=== PATIENT | female | born 1945 | race Caucasian/White ===

== ENCOUNTER → 2016-11-19 | Outpatient (REF) | payer MEDICARE, OTHER ==
[~2016-11-19] MED LIST: ATOR80TA59 PO; CALC600T57 PO; CENTCHW4 PO; COUM2.5T17 PO; PERC5TAB12 PO; WARF-23; ZOLO100T PO
[2016-11-19 13:34] LABS: MEAN CORPUSCULAR HEMOGLOBIN 31.8 pg (27.0-33.0); MEAN CORPUSCULAR HGB CONC 33.9 g/dl (32.0-36.5); MEAN CORPUSCULAR VOLUME 93.8 fl (80.0-96.0); RED CELL DISTRIBUTION WIDTH 12.9 % (11.5-14.5); WHITE BLOOD COUNT 10.6 K/mm3 (4.0-10.0)
[2016-11-19 13:49] LABS: ALBUMIN 4.2 GM/DL (3.2-5.2); ALBUMIN/GLOBULIN RATIO 1.56 (1.00-1.93); ALKALINE PHOSPHATASE 85 U/L (45-117); ALT/SGPT 27 U/L (12-78); ANION GAP 9 MEQ/L (8-16); AST/SGOT 17 U/L (15-37); BILIRUBIN,TOTAL 0.5 MG/DL (0.2-1.0); BLOOD UREA NITROGEN 17 MG/DL (7-18); CALCIUM LEVEL 9.5 MG/DL (8.8-10.2); CARBON DIOXIDE LEVEL 29 MEQ/L (21-32); CHLORIDE LEVEL 106 MEQ/L (98-107); CHOLESTEROL LEVEL 246 MG/DL (<200); CREATININE FOR GFR 0.64 MG/DL (0.55-1.02); GLOMERULAR FILTRATION RATE > 60.0 (>39); GLUCOSE, FASTING 98 MG/DL (83-110); SODIUM LEVEL 144 MEQ/L (136-145); TOTAL PROTEIN 6.9 GM/DL (6.4-8.2); TRIGLYCERIDES LEVEL 84 MG/DL (<150)
== END ==
LOC: M SFHCPLAZ 09:46
PROVIDERS: ATTEND Internal Medicine
DX: D69.6 Thrombocytopenia, unspecified (principal); E78.00 Pure hypercholesterolemia, unspecified

== ENCOUNTER → 2017-02-01 | Outpatient (CLI) | payer MEDICARE, OTHER ==
[2017-02-01 11:19] LABS: MEAN CORPUSCULAR HEMOGLOBIN 31.8 pg (27.0-33.0); MEAN CORPUSCULAR HGB CONC 33.3 g/dl (32.0-36.5); MEAN CORPUSCULAR VOLUME 95.6 fl (80.0-96.0); RED CELL DISTRIBUTION WIDTH 12.8 % (11.5-14.5); WHITE BLOOD COUNT 5.8 10^3/uL (4.0-10.0)
[2017-02-01 11:35] LABS: INR 0.9
--- NOTE | 2017-02-01 11:38 | REP ---
Chest two views HISTORY: Left knee arthritis Comparison: 12/26 10/22 The lungs are clear. The heart is normal in size. The pulmonary vasculature is normal in appearance. The bony structure is intact. IMPRESSION: No acute disease. Signed by Sanford Green MD 02/01/2017 11:29 A
[2017-02-01 11:46] LABS: ALBUMIN 4.3 GM/DL (3.2-5.2); ALBUMIN/GLOBULIN RATIO 1.39 (1.00-1.93); ALKALINE PHOSPHATASE 96 U/L (45-117); ALT/SGPT 32 U/L (12-78); ANION GAP 6 MEQ/L (8-16); AST/SGOT 19 U/L (15-37); BILIRUBIN,TOTAL 0.6 MG/DL (0.2-1.0); BLOOD UREA NITROGEN 16 MG/DL (7-18); CALCIUM LEVEL 9.5 MG/DL (8.8-10.2); CARBON DIOXIDE LEVEL 33 MEQ/L (21-32); CHLORIDE LEVEL 102 MEQ/L (98-107); CREATININE FOR GFR 0.75 MG/DL (0.55-1.02); GLOMERULAR FILTRATION RATE > 60.0 (>39); GLUCOSE, FASTING 84 MG/DL (83-110); POTASSIUM SERUM 3.9 MEQ/L (3.5-5.1); SODIUM LEVEL 141 MEQ/L (136-145); TOTAL PROTEIN 7.4 GM/DL (6.4-8.2)
--- NOTE | 2017-02-02 16:11 | ECGEPIP ---
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 Electronically Signed On 02-02-2017 16:10:56 EDT by Randy Nelson
== END ==
LOC: M ADMPAT 09:53
PROVIDERS: ATTEND Orthopaedic Surgery
DX: Z01.818 Encounter for other preprocedural examination (principal); M17.12 Unilateral primary osteoarthritis, left knee; Z79.899 Other long term (current) drug therapy

== ENCOUNTER → 2017-02-24 | Outpatient (REF) | payer MEDICARE, OTHER ==
[2017-02-24 15:36] LABS: INR 1.33
== END ==
LOC: M SHH 15:13
PROVIDERS: ATTEND Nurse Practitioner Family
DX: Z79.01 Long term (current) use of anticoagulants (principal)

== ENCOUNTER → 2017-02-28 | Outpatient (REF) | payer MEDICARE, OTHER ==
[2017-02-28 11:42] LABS: INR 1.57
== END ==
LOC: M SHH 11:26
PROVIDERS: ATTEND Nurse Practitioner Family
DX: Z79.01 Long term (current) use of anticoagulants (principal)

== ENCOUNTER → 2017-03-03 | Outpatient (REF) | payer MEDICARE, OTHER ==
[2017-03-03 14:23] LABS: INR 1.68
== END ==
LOC: M SHH 13:39
PROVIDERS: ATTEND Nurse Practitioner Family
DX: Z51.81 Encounter for therapeutic drug level monitoring (principal); Z79.01 Long term (current) use of anticoagulants

== ENCOUNTER → 2017-03-07 | Outpatient (REF) | payer MEDICARE, OTHER ==
[2017-03-07 12:54] LABS: INR 1.55
== END ==
LOC: M SHH 12:00
PROVIDERS: ATTEND Nurse Practitioner Family
DX: Z79.01 Long term (current) use of anticoagulants (principal)

== ENCOUNTER → 2017-03-09 | Outpatient (REF) | payer MEDICARE, OTHER ==
[~2017-03-09] MED LIST changes: +CORE3.12 PO; +TRAM50TA2
[2017-03-09 11:18] LABS: INR 1.63
== END ==
LOC: M SHH 10:56
PROVIDERS: ATTEND Nurse Practitioner Family
DX: Z79.01 Long term (current) use of anticoagulants (principal)

== ENCOUNTER → 2017-03-14 | Outpatient (REF) | payer MEDICARE, OTHER ==
[2017-03-14 14:16] LABS: INR 2.5
== END ==
LOC: M SHH 13:04
PROVIDERS: ATTEND Nurse Practitioner Family
DX: Z79.01 Long term (current) use of anticoagulants (principal)

== ENCOUNTER 2017-03-16 11:54 | Emergency (ER) | payer MEDICARE, OTHER ==
[~2017-03-16] VITALS: Ht 165.1 cm; Wt 70.5 kg
[~2017-03-16 11:54] MED LIST changes: -CORE3.12 PO; -TRAM50TA2
[2017-03-16] MEDS ORDERED: TRAM50TA2 (12:17)
[2017-03-16] MEDS ORDERED: METOPROLOL 5 MG/5 ML VIAL IV SCH (13:00)
[2017-03-16 13:01] LABS: BASO % 0.6 % (0.0-1.0); EOS # 0.2 10^3/uL (0.0-0.50); EOS % 3.1 % (0.0-3.0); LYMPH # 1.3 10^3/uL (1.5-4.5); LYMPH % 26.1 % (24.0-44.0); MEAN CORPUSCULAR HEMOGLOBIN 30.4 pg (27.0-33.0); MEAN CORPUSCULAR VOLUME 94.9 fl (80.0-96.0); MONO # 0.4 10^3/uL (0.0-0.8); MONO % 7.8 % (0.0-5.0); NEUTROPHILS % 62.4 % (36.0-66.0); PLATELET COUNT, AUTOMATED 149 10^3/uL (150-450); RED CELL DISTRIBUTION WIDTH 13.2 % (11.5-14.5); WHITE BLOOD COUNT 4.9 10^3/uL (4.0-10.0)
[2017-03-16 13:12] LABS: ANION GAP 7 MEQ/L (8-16); BLOOD UREA NITROGEN 12 MG/DL (7-18); CALCIUM LEVEL 9.5 MG/DL (8.8-10.2); CARBON DIOXIDE LEVEL 30 MEQ/L (21-32); CHLORIDE LEVEL 103 MEQ/L (98-107); CREATININE FOR GFR 0.63 MG/DL (0.55-1.02); GLOMERULAR FILTRATION RATE > 60.0 (>39); GLUCOSE, FASTING 93 MG/DL (83-110); POTASSIUM SERUM 3.3 MEQ/L (3.5-5.1); SODIUM LEVEL 140 MEQ/L (136-145)
[2017-03-16 13:37] VITALS: BP 153/81
[2017-03-16] MEDS ORDERED: CORE3.12 PO (14:12)
[2017-03-16] MEDS ORDERED: POTASSIUM CHLORIDE 10 MEQ SR TABLET PO ONE (14:15)
[2017-03-16 14:30] VITALS: BP 147/97
--- NOTE | 2017-03-16 20:42 | ECGEPIP ---
Stationary ECG Study [facility] - ED Test Date: 2017-03-16 Pat Name: ALBERTINA FARRIS Department: Room: - Gender: F Hall Coordinator: : 1945 Requested By: Tika Da Silva Order Number: [id number] Reading MD: Tika Da Silva Measurements Intervals [place] Rate: 99 P: 8 AK: 176 QRS: 16 QRSD: 97 T: 17 QT: 365 QTc: 470 Interpretive Statements SINUS RHYTHM NSTTW ABNORMALITY INCREASED RATE 02/01/17 Electronically Signed On 03-16-2017 20:42:15 EST by Tika Da Silva
== END 2017-03-16 14:31 | disposition home or self-care (01) ==
LOC: M ED 11:54
DX: I10 Essential (primary) hypertension (principal); E78.5 Hyperlipidemia, unspecified; Z79.899 Other long term (current) drug therapy; Z79.01 Long term (current) use of anticoagulants; Z88.1 Allergy status to other antibiotic agents; Z88.2 Allergy status to sulfonamides; Z88.8 Allergy status to other drugs, medicaments and biological substances; F17.210 Nicotine dependence, cigarettes, uncomplicated

== ENCOUNTER → 2017-06-15 | Outpatient (CLI) | payer MEDICARE, OTHER | LOC: M WHC 10:10 | DX: Z13.820 Encounter for screening for osteoporosis (principal); M81.0 Age-related osteoporosis without current pathological fracture | CPT/HCPCS: 77080 ==

== ENCOUNTER → 2017-11-24 | Outpatient (REF) | payer MEDICARE, OTHER ==
[2017-11-24 13:47] LABS: BASO % 0.2 % (0.0-1.0); EOS # 0.2 10^3/uL (0.0-0.50); EOS % 5.2 % (0.0-3.0); HEMATOCRIT 40.4 % (36.0-47.0); HEMOGLOBIN 13.2 g/dl (12.0-15.5); IMMATURE GRANULOCYTE % 0.5 % (0-3.0); LYMPH % 21.6 % (24.0-44.0); MEAN CORPUSCULAR HEMOGLOBIN 31.6 pg (27.0-33.0); MEAN CORPUSCULAR HGB CONC 32.7 g/dl (32.0-36.5); MEAN CORPUSCULAR VOLUME 96.7 fl (80.0-96.0); MONO # 0.4 10^3/uL (0.0-0.8); MONO % 8.7 % (0.0-5.0); NEUTROPHILS # 2.8 10^3/uL (1.8-7.7); NEUTROPHILS % 63.8 % (36.0-66.0); RED BLOOD COUNT 4.18 10^6/uL (4.00-5.40); RED CELL DISTRIBUTION WIDTH 13.1 % (11.5-14.5); WHITE BLOOD COUNT 4.4 10^3/uL (4.0-10.0)
[2017-11-24 13:54] LABS: IMMATURE PLATELET FRACTION % 17.1 % (0.0-9.6); PLATELET COUNT, AUTOMATED 95 10^3/uL (150-450)
[2017-11-24 14:44] LABS: THYROID STIMULATING HORMONE 0.933 uIU/ML (0.358-3.740)
== END ==
LOC: M LABDRAWP 10:29
DX: L65.9 Nonscarring hair loss, unspecified (principal); D69.6 Thrombocytopenia, unspecified; E78.00 Pure hypercholesterolemia, unspecified; F34.1 Dysthymic disorder
CPT/HCPCS: 84443

== ENCOUNTER → 2017-11-24 | Outpatient (REF) | payer MEDICARE, OTHER ==
[2017-11-24 13:47] LABS: HEMATOCRIT 39.7 % (36.0-47.0); HEMOGLOBIN 13.1 g/dl (12.0-15.5); MEAN CORPUSCULAR HEMOGLOBIN 31.4 pg (27.0-33.0); MEAN CORPUSCULAR VOLUME 95.2 fl (80.0-96.0); RED BLOOD COUNT 4.17 10^6/uL (4.00-5.40); WHITE BLOOD COUNT 4.4 10^3/uL (4.0-10.0)
[2017-11-24 13:55] LABS: PLATELET COUNT, AUTOMATED 95 10^3/uL (150-450)
[2017-11-24 15:47] LABS: ALBUMIN 3.9 GM/DL (3.2-5.2); ALBUMIN/GLOBULIN RATIO 1.39 (1.00-1.93); ALKALINE PHOSPHATASE 88 U/L (45-117); ALT/SGPT 40 U/L (12-78); ANION GAP 7 MEQ/L (8-16); AST/SGOT 22 U/L (7-37); BILIRUBIN,TOTAL 0.6 MG/DL (0.2-1.0); BLOOD UREA NITROGEN 16 MG/DL (7-18); CALCIUM LEVEL 8.9 MG/DL (8.8-10.2); CARBON DIOXIDE LEVEL 32 MEQ/L (21-32); CHLORIDE LEVEL 106 MEQ/L (98-107); CHOLESTEROL LEVEL 185 MG/DL (<200); CHOLESTEROL RISK RATIO 2.846 (<5); CREATININE FOR GFR 0.59 MG/DL (0.55-1.30); GLOMERULAR FILTRATION RATE > 60.0 (>39); GLUCOSE, FASTING 88 MG/DL (70-100); HDL CHOLESTEROL 65 MG/DL (>40); LDL CHOLESTEROL 93.6 MG/DL (<100); NON-HDL-C 120 MG/DL; SODIUM LEVEL 145 MEQ/L (136-145); THYROID STIMULATING HORMONE 0.916 uIU/ML (0.358-3.740); TOTAL PROTEIN 6.7 GM/DL (6.4-8.2); TRIGLYCERIDES LEVEL 132 MG/DL (<150)
== END ==
LOC: M SFHCPLAZ 09:27
DX: D69.6 Thrombocytopenia, unspecified (principal); E78.00 Pure hypercholesterolemia, unspecified; F34.1 Dysthymic disorder

== ENCOUNTER → 2017-11-26 | Outpatient (REF) | payer MEDICARE, OTHER | LOC: M LAB REF 10:26 | DX: R30.0 Dysuria (principal) | CPT/HCPCS: 87086 ==

== ENCOUNTER → 2018-01-19 | Outpatient (CLI) | payer MEDICARE, OTHER ==
[2018-01-19 09:54] LABS: HEMATOCRIT 40.2 % (36.0-47.0); HEMOGLOBIN 13.1 g/dl (12.0-15.5); MEAN CORPUSCULAR HEMOGLOBIN 31.1 pg (27.0-33.0); MEAN CORPUSCULAR HGB CONC 32.6 g/dl (32.0-36.5); MEAN CORPUSCULAR VOLUME 95.5 fl (80.0-96.0); PLATELET COUNT, AUTOMATED 123 10^3/uL (150-450); RED BLOOD COUNT 4.21 10^6/uL (4.00-5.40); RED CELL DISTRIBUTION WIDTH 12.9 % (11.5-14.5); WHITE BLOOD COUNT 6.3 10^3/uL (4.0-10.0)
[2018-01-19 10:05] LABS: INR 0.97
[2018-01-19 10:30] LABS: ERYTHROCYTE SEDIMENTATION RATE 8 mm/hr (0-30)
[2018-01-19 10:37] LABS: ALBUMIN 4.1 GM/DL (3.2-5.2); ALBUMIN/GLOBULIN RATIO 1.52 (1.00-1.93); ALKALINE PHOSPHATASE 91 U/L (45-117); ALT/SGPT 34 U/L (12-78); ANION GAP 8 MEQ/L (8-16); AST/SGOT 20 U/L (7-37); BILIRUBIN,TOTAL 0.5 MG/DL (0.2-1.0); BLOOD UREA NITROGEN 15 MG/DL (7-18); CALCIUM LEVEL 9.3 MG/DL (8.8-10.2); CARBON DIOXIDE LEVEL 31 MEQ/L (21-32); CHLORIDE LEVEL 106 MEQ/L (98-107); CREATININE FOR GFR 0.73 MG/DL (0.55-1.30); GLOMERULAR FILTRATION RATE > 60.0 (>39); GLUCOSE, FASTING 73 MG/DL (70-100); POTASSIUM SERUM 4.1 MEQ/L (3.5-5.1); SODIUM LEVEL 145 MEQ/L (136-145); TOTAL PROTEIN 6.8 GM/DL (6.4-8.2)
== END ==
LOC: M LAB 09:27
DX: Z01.818 Encounter for other preprocedural examination (principal); I10 Essential (primary) hypertension; D69.6 Thrombocytopenia, unspecified
CPT/HCPCS: 71046

== ENCOUNTER 2018-02-10 07:05 | Inpatient (IN) | payer MEDICARE, OTHER ==
[~2018-02-10 07:05] MED LIST changes: -ATOR80TA59 PO; -CALC600T57 PO; -CENTCHW4 PO; -COUM2.5T17 PO; +LIDOCAINE 1% MDV 20ML VIAL SQ; -PERC5TAB12 PO; -WARF-23; -ZOLO100T PO
[2018-02-10] MEDS: LR 1,000 ML IV ×3 (07:35→14:15)
[2018-02-10] MEDS: ACETAMINOPHEN 500 MG TAB PO ×2 (07:51→21:23)
[2018-02-10] MEDS ORDERED: MIDAZOLAM INJ 2 MG/2 ML VIAL (J2250) As Ordered ×2 (08:10→08:16)
[2018-02-10] MEDS ORDERED: fentaNYL 100 MCG/2 ML INJECTION (J3010) As Ordered ×2 (08:10→08:15)
[2018-02-10] MEDS ORDERED: ONDANSETRON 4MG/2ML VIAL (J2405) As Ordered (08:14)
[2018-02-10] MEDS ORDERED: LIDOCAINE 2% INJ 100 MG/5 ML SDV (FOR ANES.) As Ordered (08:14)
[2018-02-10] MEDS ORDERED: PHENYLephrine HCL 500 MCG/5 ML (100MCG/ML) SYRINGE (J2370) As Ordered (08:14)
[2018-02-10] MEDS ORDERED: KETOROLAC 60 MG/2 ML VIAL (J1885) As Ordered (08:14)
[2018-02-10] MEDS ORDERED: dexameTHASONE 4 MG/ML 1ML VIAL (J1100) As Ordered (08:14)
[2018-02-10] MEDS ORDERED: PROPOFOL 500 MG/50 ML VIAL As Ordered (08:15)
[2018-02-10] MEDS ORDERED: BUPIVACAINE/DEXTROSE 0.75% 2 ML AMP As Ordered (08:25)
[2018-02-10] MEDS: fentaNYL 100 MCG/2 ML INJECTION (J3010) IV (08:47)
[2018-02-10] MEDS: MIDAZOLAM INJ 2 MG/2 ML VIAL (J2250) IV ×2 (08:47→08:49)
[2018-02-10] MEDS: BUPIVACAINE HCL 0.25% 30 ML VIAL As Ordered ×2 (11:01→11:44)
[2018-02-10] MEDS: ceFAZolin 1GM INJ (J0690 PER 500MG) As Ordered (11:01)
[2018-02-10] MEDS: BUPIVACAINE LIPOSOME/PF 1.3% 20 ML VIAL (13.3MG/ML)(EXPAREL) As Ordered (11:44)
[2018-02-10] MEDS ORDERED: PROPOFOL 200 MG/20 ML VIAL As Ordered (11:51)
[2018-02-10] MEDS: EPINEPHrine INJ 1 MG/ML 1ML AMP As Ordered (11:55)
[2018-02-10] MEDS: TRANEXAMIC ACID 100 MG/ML 10ML VIAL As Ordered (11:56)
[2018-02-10] MEDS ORDERED: MORPHINE 1MG/ML IN 0.9% NACL 100ML IV BAG As Ordered (12:26)
[2018-02-10] MEDS: MORPHINE 1MG/ML IN 0.9% NACL 100ML IV BAG IV (12:35)
[2018-02-10] MEDS ORDERED: ONDANSETRON 4MG/2ML VIAL (J2405) IV ×2 (12:45→13:15)
[2018-02-10] MEDS ORDERED: ACETAMINOPHEN TAB 650MG DOSE (2X325MG) PO (12:45)
[2018-02-10] MEDS ORDERED: EPIDURAL/PCA KEYS XX (12:45)
[2018-02-10] MEDS ORDERED: diphenhydrAMINE INJ 50MG/ML VIAL (J1200) IV (12:45)
[2018-02-10] MEDS ORDERED: FLEET ENEMA PR (12:45)
[2018-02-10] MEDS ORDERED: NALBUPHINE HCL 10 MG/ML AMP (J2300) IV (12:45)
[2018-02-10] MEDS ORDERED: NALOXONE INJ 0.4 MG/1 ML VIAL (J2310) IV (12:45)
[2018-02-10] MEDS ORDERED: fentaNYL 100 MCG/2 ML INJECTION (J3010) IV (13:15)
[2018-02-10] MEDS ORDERED: MORPHINE 10 MG/ML 1ML VIAL (J2270) IV (13:15)
[2018-02-10] MEDS ORDERED: LIDOCAINE 1% MDV 20ML VIAL (14:30)
[2018-02-10] MEDS ORDERED: ROPIvacaine 0.5% 30 ML INJECTION (J2795 PER 1MG) (14:30)
[2018-02-10] MEDS ORDERED: dexameTHASONE 10 MG/1 ML VIAL PRES.FREE (J1100) (14:30)
[2018-02-10] MEDS ORDERED: ACETAMINOPHEN 500 MG TAB PO (21:00)
[2018-02-10] MEDS: CARVedilol 3.125 MG TAB PO (21:21)
[2018-02-10] MEDS: SERTRALINE 100 MG TAB PO (21:21)
[2018-02-10] MEDS: ATORVASTATIN 20 MG TAB PO (21:22)
[2018-02-10] MEDS: traMADol 50 MG TAB PO (21:22)
[2018-02-11] MEDS: LR 1,000 ML IV (01:15)
[2018-02-11] MEDS: traMADol 50 MG TAB PO ×4 (01:58→21:07)
[2018-02-11] MEDS: ACETAMINOPHEN 500 MG TAB PO ×3 (06:08→21:07)
[2018-02-11 07:11] LABS: BASO % 0.1 % (0.0-1.0); EOS % 0.1 % (0.0-3.0); HEMATOCRIT 27.7 % (36.0-47.0); HEMOGLOBIN 9.3 g/dl (12.0-15.5); IMMATURE GRANULOCYTE % 0.3 % (0-3.0); LYMPH # 0.8 10^3/uL (1.5-4.5); LYMPH % 7.6 % (24.0-44.0); MEAN CORPUSCULAR HEMOGLOBIN 31.7 pg (27.0-33.0); MEAN CORPUSCULAR HGB CONC 33.6 g/dl (32.0-36.5); MEAN CORPUSCULAR VOLUME 94.5 fl (80.0-96.0); MONO % 9.7 % (0.0-5.0); NEUTROPHILS # 8.1 10^3/uL (1.8-7.7); NEUTROPHILS % 82.2 % (36.0-66.0); RED BLOOD COUNT 2.93 10^6/uL (4.00-5.40); RED CELL DISTRIBUTION WIDTH 12.9 % (11.5-14.5); WHITE BLOOD COUNT 9.9 10^3/uL (4.0-10.0)
[2018-02-11 07:18] LABS: INR 1.03; PROTHROMBIN TIME 13.6 SECONDS (12.1-14.4)
[2018-02-11 07:29] LABS: ANION GAP 7 MEQ/L (8-16); BLOOD UREA NITROGEN 23 MG/DL (7-18); CALCIUM LEVEL 8.3 MG/DL (8.8-10.2); CARBON DIOXIDE LEVEL 29 MEQ/L (21-32); CHLORIDE LEVEL 106 MEQ/L (98-107); GLOMERULAR FILTRATION RATE > 60.0 (>39); GLUCOSE, FASTING 109 MG/DL (70-100); MAGNESIUM LEVEL 1.9 MG/DL (1.8-2.4); POTASSIUM SERUM 3.8 MEQ/L (3.5-5.1); SODIUM LEVEL 142 MEQ/L (136-145)
[2018-02-11 07:43] LABS: IMMATURE PLATELET FRACTION % 14.3 % (0.0-9.6); PLATELET COUNT, AUTOMATED 88 10^3/uL (150-450)
[2018-02-11] MEDS: MULTIVITAMINS CHILDREN'S CHEWABLE TABLET PO (08:54)
[2018-02-11] MEDS: MIRALAX *UNIT DOSE* 17GM PACKET PO (08:54)
[2018-02-11] MEDS: MOM 30ML SUSPENSION UDC PO (08:55)
[2018-02-11] MEDS: SERTRALINE 100 MG TAB PO ×2 (08:55→21:06)
[2018-02-11] MEDS: CARVedilol 3.125 MG TAB PO ×2 (08:57→21:07)
[2018-02-11] MEDS: CALCIUM/VITAMIN D 500 MG TAB PO (08:58)
[2018-02-11] MEDS: SENOKOT S TAB PO ×2 (08:58→21:06)
[2018-02-11 13:43] LABS: IMMEDIATE SPIN CROSSMATCH 1 1
[2018-02-11] MEDS: RIVAROXABAN 10 MG TAB (XARELTO) PO (17:08)
[2018-02-11 17:18] LABS: HEMATOCRIT 30.1 % (36.0-47.0)
[2018-02-11] MEDS: ATORVASTATIN 20 MG TAB PO (21:06)
[2018-02-12] MEDS: ONDANSETRON 4 MG ORAL DISINTEGRATING TAB (Q0162 PER 1MG) PO (03:46)
[2018-02-12] MEDS: traMADol 50 MG TAB PO (03:46)
[2018-02-12] MEDS: ACETAMINOPHEN 500 MG TAB PO (05:02)
[2018-02-12 07:10] LABS: BASO % 0.3 % (0.0-1.0); EOS % 0.4 % (0.0-3.0); HEMATOCRIT 28.4 % (36.0-47.0); HEMOGLOBIN 9.5 g/dl (12.0-15.5); IMMATURE GRANULOCYTE % 0.4 % (0-3.0); LYMPH # 0.9 10^3/uL (1.5-4.5); LYMPH % 12.5 % (24.0-44.0); MEAN CORPUSCULAR HGB CONC 33.5 g/dl (32.0-36.5); MEAN CORPUSCULAR VOLUME 92.8 fl (80.0-96.0); MONO # 0.8 10^3/uL (0.0-0.8); MONO % 11.1 % (0.0-5.0); NEUTROPHILS # 5.2 10^3/uL (1.8-7.7); NEUTROPHILS % 75.3 % (36.0-66.0); RED BLOOD COUNT 3.06 10^6/uL (4.00-5.40); RED CELL DISTRIBUTION WIDTH 14.3 % (11.5-14.5); WHITE BLOOD COUNT 6.9 10^3/uL (4.0-10.0)
[2018-02-12 07:20] LABS: INR 1.15; PROTHROMBIN TIME 14.9 SECONDS (12.1-14.4)
[2018-02-12 07:28] LABS: ANION GAP 5 MEQ/L (8-16); BLOOD UREA NITROGEN 14 MG/DL (7-18); CALCIUM LEVEL 8.4 MG/DL (8.8-10.2); CARBON DIOXIDE LEVEL 30 MEQ/L (21-32); CHLORIDE LEVEL 105 MEQ/L (98-107); CREATININE FOR GFR 0.47 MG/DL (0.55-1.30); GLOMERULAR FILTRATION RATE > 60.0 (>39); GLUCOSE, FASTING 103 MG/DL (70-100); MAGNESIUM LEVEL 2.1 MG/DL (1.8-2.4); POTASSIUM SERUM 3.5 MEQ/L (3.5-5.1); SODIUM LEVEL 140 MEQ/L (136-145)
[2018-02-12 07:32] LABS: PLATELET COUNT, AUTOMATED 73 10^3/uL (150-450)
[2018-02-12] MEDS: MOM 30ML SUSPENSION UDC PO (09:55)
[2018-02-12] MEDS: MIRALAX *UNIT DOSE* 17GM PACKET PO (09:55)
[2018-02-12] MEDS: CALCIUM/VITAMIN D 500 MG TAB PO (09:56)
[2018-02-12] MEDS: MULTIVITAMINS CHILDREN'S CHEWABLE TABLET PO (09:56)
[2018-02-12] MEDS: SERTRALINE 100 MG TAB PO (09:57)
[2018-02-12] MEDS: SENOKOT S TAB PO (09:57)
[2018-02-12] MEDS: CARVedilol 3.125 MG TAB PO (09:57)
== END 2018-02-12 12:00 | disposition home health service (06) | DRG 470 ==
LOC: M OR 07:05 → M MS5PR 13:50
PROC: 0SRC0J9 Replacement of Right Knee Joint with Synthetic Substitute, Cemented, Open Approach (ICD-10-PCS; principal; 2018-02-10 09:45)
PROC: 30233N1 Transfusion of Nonautologous Red Blood Cells into Peripheral Vein, Percutaneous Approach (ICD-10-PCS; 2018-02-10 10:17)
DX: M17.11 Unilateral primary osteoarthritis, right knee (principal); E78.00 Pure hypercholesterolemia, unspecified; D69.6 Thrombocytopenia, unspecified; K21.9 Gastro-esophageal reflux disease without esophagitis; F32.9 Major depressive disorder, single episode, unspecified; J30.9 Allergic rhinitis, unspecified; I10 Essential (primary) hypertension; Z88.6 Allergy status to analgesic agent; Z88.5 Allergy status to narcotic agent; Z88.2 Allergy status to sulfonamides; Z79.899 Other long term (current) drug therapy; Z96.652 Presence of left artificial knee joint; Z85.828 Personal history of other malignant neoplasm of skin; Z87.891 Personal history of nicotine dependence; D64.9 Anemia, unspecified

== ENCOUNTER 2018-02-16 14:38 | Outpatient (RCR) | payer MEDICARE, OTHER | END 2018-03-17 | LOC: M PT 14:38 | DX: Z96.651 Presence of right artificial knee joint (principal) | CPT/HCPCS: 97110 ==

== ENCOUNTER → 2018-08-02 | Outpatient (REF) | payer MEDICARE, OTHER ==
[~2018-08-02] MED LIST changes: +ATOR80TA59 PO; +CALC600T57 PO; +CENTCHW4 PO; +CORE3.12 PO; +COUM2.5T17 PO; -LIDOCAINE 1% MDV 20ML VIAL SQ; +PERC5TAB12 PO; +TRAM50TA2; +TRAM50TA2 PO; +TYLE500T78 PO; +WARF-23; +XARE10TA PO; +ZOLO100T PO
[2018-08-02 12:38] LABS: BLOOD UREA NITROGEN 13 MG/DL (7-18); CREATININE FOR GFR 0.67 MG/DL (0.55-1.30); GLOMERULAR FILTRATION RATE > 60.0 (>39)
== END ==
LOC: M SFHCPLAZ 10:09
PROVIDERS: ATTEND Internal Medicine
DX: I10 Essential (primary) hypertension (principal)
CPT/HCPCS: 36415; 82565; 84520; G0463

== ENCOUNTER → 2018-08-09 | Outpatient (CLI) | payer MEDICARE, OTHER ==
--- NOTE | 2018-08-09 14:19 | REP ---
MR BRAIN WITHOUT CONTRAST: HISTORY: Left leg weakness. COMPARISON: 10/26/2010. Areas of increased signal intensity on T2-weighted images are present in the periventricular and subcortical white matter. This represents small vessel ischemic disease. There is no intraparenchymal hemorrhage, infarct, mass, or midline shift. The ventricular system and cortical sulci are dilated consistent with mild volume loss. There is no extracerebral collection. The sinuses are clear. IMPRESSION: 1. Small vessel ischemic disease. 2. Mild volume loss. Electronically Signed by Sanford Green MD 08/09/2018 02:30 P
== END ==
LOC: M RAD 11:14
PROVIDERS: ATTEND Internal Medicine
DX: I67.82 Cerebral ischemia (principal)

== ENCOUNTER → 2018-09-14 | Outpatient (CLI) | payer MEDICARE, OTHER ==
--- NOTE | 2018-09-14 14:37 | REP ---
Clinical: Puncture wound. Technique: AP, lateral, bilateral oblique views of the left third digit. Findings: No acute fracture dislocation. No subcutaneous emphysema or radiodense foreign body. Impression: No obvious acute pathology by radiographic evaluation. Electronically Signed by Chandler Diaz MD 09/14/2018 02:28 P
== END ==
LOC: M WUC 13:26
PROVIDERS: ATTEND Physician Assistant
DX: S61.243A Puncture wound with foreign body of left middle finger without damage to nail, initial encounter (principal); X58.XXXA Exposure to other specified factors, initial encounter; Y92.9 Unspecified place or not applicable

== ENCOUNTER → 2018-10-11 | Outpatient (CLI) | payer MEDICARE, OTHER ==
--- NOTE | 2018-10-12 09:42 | REP ---
Clinical: Right shoulder pain. Technique: Internal rotation, external rotation, and Y view of the right shoulder. Findings: Cortical irregularity and spurring at the acromioclavicular joint noted. Subtle blunting along the calcified glenoid rim identified. The subacromial space is normal. No periarticular calcifications or loose bodies. No evidence for acute fracture. Impression: Mild arthritic changes. Electronically Signed by Chandler Diaz MD 10/11/2018 12:06 P
== END ==
LOC: M WUC 11:54
PROVIDERS: ATTEND Physician Assistant
DX: M25.711 Osteophyte, right shoulder (principal); M19.011 Primary osteoarthritis, right shoulder

== ENCOUNTER → 2018-12-08 | Outpatient (REF) | payer MEDICARE, OTHER ==
[2018-12-08 10:17] LABS: HEMATOCRIT 42.3 % (36.0-47.0); MEAN CORPUSCULAR HEMOGLOBIN 32.6 pg (27.0-33.0); MEAN CORPUSCULAR HGB CONC 33.1 g/dl (32.0-36.5); MEAN CORPUSCULAR VOLUME 98.6 fl (80.0-96.0); PLATELET COUNT, AUTOMATED 109 10^3/uL (150-450); RED BLOOD COUNT 4.29 10^6/uL (4.00-5.40)
[2018-12-08 10:31] LABS: ALT/SGPT 34 U/L (12-78); BILIRUBIN,TOTAL 0.5 MG/DL (0.2-1.0); BLOOD UREA NITROGEN 16 MG/DL (7-18); CALCIUM LEVEL 9.3 MG/DL (8.8-10.2); CARBON DIOXIDE LEVEL 33 MEQ/L (21-32); CHLORIDE LEVEL 107 MEQ/L (98-107); CHOLESTEROL LEVEL 199 MG/DL (<200); CHOLESTEROL RISK RATIO 2.618 (<5); CREATININE FOR GFR 0.65 MG/DL (0.55-1.30); GLOMERULAR FILTRATION RATE > 60.0 (>39); GLUCOSE, FASTING 99 MG/DL (70-100); HDL CHOLESTEROL 76 MG/DL (>40); LDL CHOLESTEROL 100 MG/DL (<100); MAGNESIUM LEVEL 2.2 MG/DL (1.8-2.4); NON-HDL-C 123 MG/DL; SODIUM LEVEL 144 MEQ/L (136-145); TOTAL PROTEIN 6.8 GM/DL (6.4-8.2); TRIGLYCERIDES LEVEL 113 MG/DL (<150)
== END ==
LOC: M SFHCPLAZ 08:20
PROVIDERS: ATTEND Internal Medicine
DX: D69.6 Thrombocytopenia, unspecified (principal); I10 Essential (primary) hypertension; E78.00 Pure hypercholesterolemia, unspecified; F34.1 Dysthymic disorder

== ENCOUNTER → 2018-12-15 | Outpatient (REF) | payer MEDICARE, OTHER ==
[2018-12-15 16:03] LABS: FOLATE > 24.0 NG/ML; VITAMIN B12 LEVEL 501 PG/ML
== END ==
LOC: M SFHCPLAZ 10:43
PROVIDERS: ATTEND Internal Medicine
DX: D69.6 Thrombocytopenia, unspecified (principal); R41.89 Other symptoms and signs involving cognitive functions and awareness
CPT/HCPCS: 36415; 82607; 82746; G0463

== ENCOUNTER → 2019-06-13 | Outpatient (REF) | payer MEDICARE, OTHER ==
[2019-06-13 18:39] LABS: BASO % 0.4 % (0.0-1.0); EOS # 0.2 10^3/uL (0.0-0.5); HEMATOCRIT 43.7 % (36.0-47.0); HEMOGLOBIN 14.3 g/dl (12.0-15.5); LYMPH # 1.7 10^3/uL (1.5-5.0); LYMPH % 23.9 % (24.0-44.0); MEAN CORPUSCULAR HEMOGLOBIN 31.3 pg (27.0-33.0); MEAN CORPUSCULAR HGB CONC 32.7 g/dl (32.0-36.5); MEAN CORPUSCULAR VOLUME 95.6 fl (80.0-96.0); MONO # 0.6 10^3/uL (0.0-0.8); MONO % 8.5 % (0.0-5.0); NEUTROPHILS # 4.5 10^3/uL (1.5-8.5); NEUTROPHILS % 64.1 % (36.0-66.0); PLATELET COUNT, AUTOMATED 148 10^3/uL (150-450); RED BLOOD COUNT 4.57 10^6/uL (4.00-5.40); WHITE BLOOD COUNT 7.1 10^3/uL (4.0-10.0)
[2019-06-13 18:42] LABS: ALBUMIN 4.7 GM/DL (3.2-5.2); ALT/SGPT 30 U/L (12-78); BILIRUBIN,TOTAL 0.6 MG/DL (0.2-1.0); BLOOD UREA NITROGEN 17 MG/DL (7-18); CALCIUM LEVEL 9.8 MG/DL (8.8-10.2); CARBON DIOXIDE LEVEL 31 MEQ/L (21-32); CHLORIDE LEVEL 105 MEQ/L (98-107); GLOMERULAR FILTRATION RATE > 60.0 (>39); GLUCOSE, FASTING 91 MG/DL (70-100); POTASSIUM SERUM 3.9 MEQ/L (3.5-5.1); SODIUM LEVEL 141 MEQ/L (136-145); TOTAL PROTEIN 7.3 GM/DL (6.4-8.2)
== END ==
LOC: M SFHCPLAZ 14:46
PROVIDERS: ATTEND Internal Medicine
DX: D69.6 Thrombocytopenia, unspecified (principal); E78.00 Pure hypercholesterolemia, unspecified; I10 Essential (primary) hypertension
CPT/HCPCS: 36415; 80053; 85025; G0463

== ENCOUNTER → 2019-12-14 | Outpatient (CLI) | payer MEDICARE, OTHER ==
[2019-12-14 12:43] LABS: BASO % 0.6 % (0.0-1.0); EOS # 0.3 10^3/uL (0.0-0.5); EOS % 4.2 % (0.0-3.0); HEMATOCRIT 42.1 % (36.0-47.0); HEMOGLOBIN 13.8 g/dl (12.0-15.5); LYMPH # 1.3 10^3/uL (1.5-5.0); LYMPH % 17.7 % (24.0-44.0); MEAN CORPUSCULAR HEMOGLOBIN 32.2 pg (27.0-33.0); MEAN CORPUSCULAR HGB CONC 32.8 g/dl (32.0-36.5); MEAN CORPUSCULAR VOLUME 98.1 fl (80.0-96.0); MONO # 0.5 10^3/uL (0.0-0.8); MONO % 6.8 % (0.0-5.0); NEUTROPHILS % 70.6 % (36.0-66.0); PLATELET COUNT, AUTOMATED 126 10^3/uL (150-450); RED BLOOD COUNT 4.29 10^6/uL (4.00-5.40); WHITE BLOOD COUNT 7.1 10^3/uL (4.0-10.0)
[2019-12-14 12:48] LABS: ALT/SGPT 31 U/L (12-78); BILIRUBIN,TOTAL 0.5 MG/DL (0.2-1.0); BLOOD UREA NITROGEN 14 MG/DL (7-18); CALCIUM LEVEL 9.2 MG/DL (8.8-10.2); CARBON DIOXIDE LEVEL 34 MEQ/L (21-32); CHLORIDE LEVEL 107 MEQ/L (98-107); CHOLESTEROL LEVEL 174 MG/DL (<200); CHOLESTEROL RISK RATIO 2.383 (<5); CREATININE FOR GFR 0.66 MG/DL (0.55-1.30); GLOMERULAR FILTRATION RATE > 60.0 (>39); GLUCOSE, FASTING 93 MG/DL (70-100); HDL CHOLESTEROL 73 MG/DL (>40); LDL CHOLESTEROL 82 MG/DL (<100); MAGNESIUM LEVEL 2.4 MG/DL (1.8-2.4); NON-HDL-C 101 MG/DL; POTASSIUM SERUM 4.2 MEQ/L (3.5-5.1); SODIUM LEVEL 145 MEQ/L (136-145); TOTAL PROTEIN 6.7 GM/DL (6.4-8.2); TRIGLYCERIDES LEVEL 95 MG/DL (<150)
== END ==
LOC: M PLALAB 08:17
PROVIDERS: ATTEND Internal Medicine
DX: D69.6 Thrombocytopenia, unspecified (principal); E78.00 Pure hypercholesterolemia, unspecified; I10 Essential (primary) hypertension

== ENCOUNTER → 2020-05-02 | Outpatient (CLI) | payer SELFPAY | LOC: M LABSMTC 10:58 | PROVIDERS: ATTEND Pediatrics | DX: Z20.822 Contact with and (suspected) exposure to COVID-19 (principal) ==

== ENCOUNTER → 2020-10-13 | Outpatient (CLI) | payer MEDICARE, OTHER ==
[2020-10-13 13:14] LABS: BASO % 0.4 % (0.0-1.0); EOS # 0.2 10^3/uL (0.0-0.5); EOS % 4.1 % (0.0-3.0); HEMATOCRIT 38.7 % (36.0-47.0); HEMOGLOBIN 12.7 g/dl (12.0-15.5); LYMPH % 19.9 % (24.0-44.0); MEAN CORPUSCULAR HEMOGLOBIN 32.2 pg (27.0-33.0); MEAN CORPUSCULAR HGB CONC 32.8 g/dl (32.0-36.5); MEAN CORPUSCULAR VOLUME 98.2 fl (80.0-96.0); MONO # 0.5 10^3/uL (0.0-0.8); MONO % 8.9 % (2.0-8.0); NEUTROPHILS # 3.4 10^3/uL (1.5-8.5); NEUTROPHILS % 66.5 % (36.0-66.0); PLATELET COUNT, AUTOMATED 119 10^3/uL (150-450); RED BLOOD COUNT 3.94 10^6/uL (4.00-5.40); WHITE BLOOD COUNT 5.1 10^3/uL (4.0-10.0)
[2020-10-13 14:33] LABS: ALBUMIN 3.8 GM/DL (3.2-5.2); ALT/SGPT 32 U/L (12-78); BILIRUBIN,TOTAL 0.5 MG/DL (0.2-1.0); BLOOD UREA NITROGEN 14 MG/DL (7-18); CALCIUM LEVEL 8.7 MG/DL (8.8-10.2); CARBON DIOXIDE LEVEL 29 MEQ/L (21-32); CHLORIDE LEVEL 108 MEQ/L (98-107); CHOLESTEROL LEVEL 178 MG/DL (<200); CHOLESTEROL RISK RATIO 2.781 (<5); CREATININE FOR GFR 0.65 MG/DL (0.55-1.30); GLOMERULAR FILTRATION RATE > 60.0 (>39); GLUCOSE, FASTING 99 MG/DL (70-100); HDL CHOLESTEROL 64 MG/DL (>40); LDL CHOLESTEROL 94 MG/DL (<100); MAGNESIUM LEVEL 2.3 MG/DL (1.8-2.4); NON-HDL-C 114 MG/DL; POTASSIUM SERUM 3.8 MEQ/L (3.5-5.1); SODIUM LEVEL 141 MEQ/L (136-145); TOTAL PROTEIN 6.5 GM/DL (6.4-8.2); TRIGLYCERIDES LEVEL 99 MG/DL (<150)
== END ==
LOC: M PLALAB 11:21
PROVIDERS: ATTEND Internal Medicine
DX: E78.00 Pure hypercholesterolemia, unspecified (principal); D69.6 Thrombocytopenia, unspecified; I10 Essential (primary) hypertension; R41.89 Other symptoms and signs involving cognitive functions and awareness; Z11.59 Encounter for screening for other viral diseases
CPT/HCPCS: 36415; 80053; 80061; 83735; 84443; 85025; G0472

== ENCOUNTER → 2020-10-27 | Outpatient (CLI) | payer MEDICARE, OTHER ==
[~2020-10-27] MED LIST changes: +PROHANCE 279.3MG/ML 15ML VIAL ONE
--- NOTE | 2020-10-29 16:21 | REPVR ---
PROCEDURE INFORMATION: Exam: MR Head Without and With Contrast; Internal Auditory Canals Exam date and time: 10/27/2020 3:30 PM Age: 75 years old Clinical indication: Dizziness; Additional info: Vertigo TECHNIQUE: Imaging protocol: MR of the head without and with intravenous contrast. Exam focused on the internal auditory canals. Contrast material: PROHANCE; Contrast volume: 14 ml; Contrast route: INTRAVENOUS (IV); COMPARISON: No relevant prior studies available. FINDINGS: Brain: The brain demonstrates diffuse volume loss. There are foci of increased T2/FLAIR signal in the periventricular white matter most consistent with chronic small vessel ischemic change. The diffusion sequence demonstrates no acute change. There is no abnormal enhancement. Ventricles: The ventricles and CSF spaces are proportionately enlarged. Mastoid air cells: No effusions. Internal auditory canals: 7th and 8th cranial nerves are unremarkable. No abnormal masses. Bones/joints: Unremarkable. IMPRESSION: 1. No evidence of an acoustic neuroma. 2. Generalized volume loss and the sequela prior ischemic disease. 3. No acute change or abnormal enhancement. Electronically signed by: Mainor Blanc On 10/29/2020 16:21:04 PM
== END ==
LOC: M PLAIMG 14:12
PROVIDERS: ATTEND Internal Medicine
DX: R42 Dizziness and giddiness (principal)
CPT/HCPCS: 70553; A9576

== ENCOUNTER → 2021-08-21 | Outpatient (REF) | payer MEDICARE, OTHER ==
[~2021-08-21] MED LIST changes: -PROHANCE 279.3MG/ML 15ML VIAL ONE
== END ==
LOC: M LAB REF 12:41
PROVIDERS: ATTEND Physician Assistant
DX: R30.0 Dysuria (principal)

== ENCOUNTER → 2021-10-13 | Outpatient (CLI) | payer MEDICARE, OTHER ==
[2021-10-13 13:49] LABS: BASO % 0.3 % (0.0-1.0); EOS # 0.2 10^3/uL (0.0-0.5); EOS % 2.9 % (0.0-3.0); HEMATOCRIT 41.2 % (36.0-47.0); HEMOGLOBIN 13.5 g/dl (12.0-15.5); LYMPH # 1.1 10^3/uL (1.5-5.0); LYMPH % 16.1 % (24.0-44.0); MEAN CORPUSCULAR HEMOGLOBIN 31.8 pg (27.0-33.0); MEAN CORPUSCULAR HGB CONC 32.8 g/dl (32.0-36.5); MEAN CORPUSCULAR VOLUME 96.9 fl (80.0-96.0); MONO # 0.5 10^3/uL (0.0-0.8); NEUTROPHILS # 4.8 10^3/uL (1.5-8.5); NEUTROPHILS % 72.5 % (36.0-66.0); PLATELET COUNT, AUTOMATED 124 10^3/uL (150-450); RED BLOOD COUNT 4.25 10^6/uL (4.00-5.40); WHITE BLOOD COUNT 6.7 10^3/uL (4.0-10.0)
[2021-10-13 14:20] LABS: ALT/SGPT 42 U/L (12-78); BILIRUBIN,TOTAL 0.5 MG/DL (0.2-1.0); BLOOD UREA NITROGEN 12 MG/DL (7-18); CARBON DIOXIDE LEVEL 29 MEQ/L (21-32); CHLORIDE LEVEL 110 MEQ/L (98-107); CHOLESTEROL LEVEL 193 MG/DL (<200); CHOLESTEROL RISK RATIO 2.797 (<5); CREATININE FOR GFR 0.61 MG/DL (0.55-1.30); GLOMERULAR FILTRATION RATE > 60.0 (>39); GLUCOSE, FASTING 94 MG/DL (70-100); HDL CHOLESTEROL 69 MG/DL (>40); LDL CHOLESTEROL 102 MG/DL (<100); MAGNESIUM LEVEL 2.3 MG/DL (1.8-2.4); NON-HDL-C 124 MG/DL; POTASSIUM SERUM 4.2 MEQ/L (3.5-5.1); SODIUM LEVEL 144 MEQ/L (136-145); TOTAL PROTEIN 6.8 GM/DL (6.4-8.2); TRIGLYCERIDES LEVEL 110 MG/DL (<150)
[2021-10-13 14:24] LABS: VITAMIN B12 LEVEL 476 PG/ML
[2021-10-13 14:25] LABS: FOLATE > 24.0 NG/ML
== END ==
LOC: M PLALAB 11:40
PROVIDERS: ATTEND Internal Medicine
DX: E78.00 Pure hypercholesterolemia, unspecified (principal); D69.6 Thrombocytopenia, unspecified; I10 Essential (primary) hypertension

== ENCOUNTER 2023-02-20 20:24 | Emergency (ER) | payer MEDICARE, OTHER ==
[~2023-02-20] VITALS: Ht 152.4 cm; Wt 77.7 kg
[2023-02-20 20:25] VITALS: BP 137/88; TEMP 97.8; O2SAT 97
[2023-02-20] MEDS ORDERED: BUSP10TA (20:34)
[2023-02-20] MEDS ORDERED: LIDOCAINE 2% MDV 20ML VIAL SC ONE (21:30)
[2023-02-20] MEDS ORDERED: NEOSPORIN OINT 0.9 GM PKT TOP ONE (21:55)
== END 2023-02-20 22:13 | disposition home or self-care (01) ==
LOC: M ED 20:24
DX: S90.452A Superficial foreign body, left great toe, initial encounter (principal); F41.9 Anxiety disorder, unspecified; I10 Essential (primary) hypertension; E78.5 Hyperlipidemia, unspecified; Z88.2 Allergy status to sulfonamides; Z88.6 Allergy status to analgesic agent; Z88.8 Allergy status to other drugs, medicaments and biological substances; Z96.653 Presence of artificial knee joint, bilateral; Z79.02 Long term (current) use of antithrombotics/antiplatelets; Z79.810 Long term (current) use of selective estrogen receptor modulators (SERMs); Z79.899 Other long term (current) drug therapy

== ENCOUNTER → 2023-02-21 | Outpatient (CLI) | payer MEDICARE, OTHER ==
[~2023-02-21] MED LIST changes: +BUSP10TA
== END ==
LOC: M WHC 14:00
PROVIDERS: ATTEND Family Medicine
DX: Z12.31 Encounter for screening mammogram for malignant neoplasm of breast (principal); Z78.0 Asymptomatic menopausal state; Z13.820 Encounter for screening for osteoporosis; M85.88 Other specified disorders of bone density and structure, other site; R92.323 Mammographic fibroglandular density, bilateral breasts

== ENCOUNTER → 2023-03-12 | Outpatient (CLI) | payer MEDICARE, OTHER | LOC: M RAD 08:05 | PROVIDERS: ATTEND Family Medicine | DX: G31.84 Mild cognitive impairment of uncertain or unknown etiology (principal); R90.82 White matter disease, unspecified ==

== ENCOUNTER → 2023-06-30 | Outpatient (REF) | payer MEDICARE, OTHER ==
[~2023-06-30] MED LIST changes: +BUSP5TA PO; +CARV3.12 PO; +VITA500C24 PO
== END ==
LOC: M SFHCPLAZ 12:43
PROVIDERS: ATTEND Family Medicine
DX: I10 Essential (primary) hypertension (principal); E78.00 Pure hypercholesterolemia, unspecified; D69.6 Thrombocytopenia, unspecified

== ENCOUNTER → 2023-09-13 | Outpatient (REF) | payer MEDICARE, OTHER | LOC: M LAB REF 16:19 | PROVIDERS: ATTEND Physician Assistant | DX: R30.0 Dysuria (principal) ==

== ENCOUNTER 2023-11-10 15:17 | Emergency (ER) | payer MEDICARE, OTHER ==
[~2023-11-10] VITALS: Ht 165.1 cm; Wt 74.8 kg
[2023-11-10 15:18] VITALS: BP 158/98; TEMP 97.6; O2SAT 100
== END 2023-11-10 16:10 | disposition left against medical advice (07) ==
LOC: M ED 15:17
DX: Z53.21 Procedure and treatment not carried out due to patient leaving prior to being seen by health care provider (principal)

== ENCOUNTER → 2023-12-26 | Outpatient (REF) | payer MEDICARE, OTHER | LOC: M LAB REF 16:20 | PROVIDERS: ATTEND Physician Assistant | DX: N39.0 Urinary tract infection, site not specified (principal) ==

== ENCOUNTER → 2024-01-11 | Outpatient (CLI) | payer MEDICARE, OTHER ==
[2024-01-11 14:08] LABS: HEMATOCRIT 38.7 % (36.0-47.0); HEMOGLOBIN 12.6 g/dl (12.0-15.5); MEAN CORPUSCULAR HEMOGLOBIN 31.9 pg (27.0-33.0); MEAN CORPUSCULAR HGB CONC 32.6 g/dl (32.0-36.5); PLATELET COUNT, AUTOMATED 106 10^3/uL (150-450); RED BLOOD COUNT 3.95 10^6/uL (4.00-5.40); WHITE BLOOD COUNT 6.4 10^3/uL (4.0-10.0)
[2024-01-11 14:09] LABS: BLOOD UREA NITROGEN 12 MG/DL (9-23); CALCIUM LEVEL 9.3 MG/DL (8.3-10.6); CARBON DIOXIDE LEVEL 31 MMOL/L (20-31); CHLORIDE LEVEL 107 MMOL/L (98-107); CHOLESTEROL LEVEL 165 MG/DL (<200); CHOLESTEROL RISK RATIO 2.72 (<5); CREATININE FOR GFR 0.66 MG/DL (0.55-1.30); GLOMERULAR FILTRATION RATE > 60.0 (>39); GLUCOSE, FASTING 72 MG/DL (74-106); HDL CHOLESTEROL 60.5 MG/DL (>40); LDL CHOLESTEROL 78.7 MG/DL (<100); NON-HDL-C 104.5 MG/DL; POTASSIUM SERUM 3.9 MMOL/L (3.5-5.1); SODIUM LEVEL 141 MMOL/L (136-145); TRIGLYCERIDES LEVEL 129 MG/DL (<150)
== END ==
LOC: M PLALAB 10:44
PROVIDERS: ATTEND Family Medicine
DX: D69.6 Thrombocytopenia, unspecified (principal); E78.00 Pure hypercholesterolemia, unspecified; I10 Essential (primary) hypertension

== ENCOUNTER → 2024-07-09 | Outpatient (REF) | payer MEDICARE, OTHER ==
[2024-07-09 18:49] LABS: APPEARANCE, URINE CLOUDY (CLEAR); BACTERIA, URINE AUTO NEGATIVE (NEGATIVE); BILIRUBIN, URINE AUTO NEGATIVE (NEGATIVE); BLOOD, URINE BLOOD 2+ (NEGATIVE); COLOR, URINE AMBER (YELLOW); GLUCOSE, URINE (UA) AUTO NEGATIVE (NEGATIVE); KETONE, URINE AUTO TRACE mg/dL (NEGATIVE); LEUKOCYTE ESTERASE, URINE AUTO 3+ (NEGATIVE); MUCUS, URINE SMALL (NEGATIVE); NITRITE, URINE AUTO NEGATIVE (NEGATIVE); PROTEIN, URINE AUTO 2+ mg/dL (NEGATIVE); RBC, URINE AUTO 5 /HPF (0-3); SPECIFIC GRAVITY URINE AUTO 1.025 (1.002-1.035); SQUAMOUS EPITHELIAL CELL UR AU 2 /HPF (0-6); UROBILINOGEN, URINE AUTO 0.2 mg/dL (0.0-2.0); WBC, URINE AUTO TNTC /HPF (0-3)
== END ==
LOC: M LAB REF 17:53
PROVIDERS: ATTEND Physician Assistant Medical
DX: N39.0 Urinary tract infection, site not specified (principal)

== ENCOUNTER → 2024-10-24 | Outpatient (REF) | payer MEDICARE, OTHER | LOC: M LAB REF 12:04 | PROVIDERS: ATTEND Physician Assistant | DX: R30.0 Dysuria (principal) ==

== ENCOUNTER → 2024-12-20 | Outpatient (REF) | payer MEDICARE, OTHER | LOC: M LAB REF 12:12 | PROVIDERS: ATTEND Nurse Practitioner Family | DX: R30.0 Dysuria (principal) ==

== ENCOUNTER → 2025-01-05 | Outpatient (REF) | payer MEDICARE, OTHER | LOC: M LAB REF 14:10 | PROVIDERS: ATTEND Physician Assistant Medical | DX: R30.0 Dysuria (principal); N39.0 Urinary tract infection, site not specified ==